=== PATIENT | male | born 1965 | race American Indian/Alaskan Native ===

== ENCOUNTER → 2025-01-31 | Outpatient (CLI) | payer BC, SELFPAY ==
--- NOTE | 2025-01-31 15:53 | XR_ITS ---
Examination: Left knee 4 views TECHNIQUE: AP oblique lateral axial left knee 4 views Date and time: January 31, 2025 1559 hours INDICATIONS: Left knee pain months. FINDINGS: Minimal tricompartment osteoarthritis No fracture or patellar dislocation IMPRESSION: Minimal tricompartment osteoarthritis
--- NOTE | 2025-01-31 15:53 | XR_ITS ---
Examination: Bilateral hips, AP pelvis, 5 views Technique: AP, lateral views both hips, AP pelvis, 5 views Exam date and time: January 31, 2025 1559 hours INDICATIONS: Bilateral hip pain months FINDINGS: Moderate osteopenia Minimal bilateral hip osteoarthritis No hip or pelvic fracture IMPRESSION: Minimal bilateral hip osteoarthritis
== END | disposition home or self-care (01) ==
PROVIDERS: PCP Nurse Practitioner Family; Referring Provider Nurse Practitioner Family; Visit Provider Nurse Practitioner Family
DX: M16.0 Bilateral primary osteoarthritis of hip (principal); M17.12 Unilateral primary osteoarthritis, left knee
CPT/HCPCS: 73523; 73564